=== PATIENT | female | born 1980 ===

== ENCOUNTER 2017-05-19 14:56 | Outpatient (CLI) | payer OTHER ==
--- NOTE | 2017-05-19 16:13 | Ultrasound Report ---
BILATERAL DIGITAL DIAGNOSTIC MAMMOGRAM with CAD and RIGHT BREAST ULTRASOUND: 05/19/17 CLINICAL: 36 year-old with right breast pain and palpable lump. COMPARISON:None. These are baseline studies. FINDINGS: The breasts are heterogeneously dense and are sufficiently dense limit the sensitivity of mammography.No mass, architectural distortion or suspicious calcifications . No mammographic finding at the right upper outer palpable marker where she feels a lump. Ultrasound of the right breast upper outer quadrant demonstrated normal fibroglandular structures. No mass, cyst or shadowing. IMPRESSION: Negative mammogram and negative right breast ultrasound. BI-RADS CATEGORY: 1 - - Negative RECOMMENDATION: Clinical follow-up of the palpable area and routine mammographic screening based on ACS guidelines. ACR BI-RADS MAMMOGRAPHIC CODES: 0 = Needs additional imaging evaluation; 1 = Negative; 2 = Benign; 3 = Probably benign; 4 = Suspicious; 5 = Malignant; 6 = Known biopsy-proven malignancy COMMENT: 1. Dense breast tissue, i.e., adenosis, fibrocystic changes, etc., may obscure an underlying neoplasm. 2. Approximately 10% of cancers are not detected with mammography. 3. A negative mammography report should not delay biopsy if a clinically suspicious mass is present. COMMENT: Patient follow-up letters are generated by our [employer] application.
== END 2017-05-19 14:57 | disposition home or self-care (01) ==
LOC: SPVWC 14:56
DX: N64.4 Mastodynia (principal)
CPT/HCPCS: 76642; G0204; 77066